=== PATIENT | female | born 1980 | race Caucasian/White ===

== ENCOUNTER 2018-11-20 10:49 | Emergency (ER) | payer MEDICAID ==
[~2018-11-20] VITALS: Ht 162.6 cm; Wt 89.0 kg
[~2018-11-20 10:49] MED LIST: AZIT250T PO; DIPH-423 PO; HYDR25CA PO; METHERGINE; PERM60CR19 TP; PRED20TA PO
[2018-11-20] MEDS ORDERED: CLIN150C2 PO (13:05)
[2018-11-20 13:34] VITALS: BP 126/76
== END 2018-11-20 13:26 | disposition home or self-care (01) ==
LOC: ER 10:50
DX: R59.1 Generalized enlarged lymph nodes (principal); J45.909 Unspecified asthma, uncomplicated; F15.90 Other stimulant use, unspecified, uncomplicated; F11.90 Opioid use, unspecified, uncomplicated; Z98.890 Other specified postprocedural states; Z86.14 Personal history of Methicillin resistant Staphylococcus aureus infection; Z79.899 Other long term (current) drug therapy; Z88.2 Allergy status to sulfonamides; Z88.5 Allergy status to narcotic agent
CPT/HCPCS: 99283

== ENCOUNTER 2018-11-28 23:43 | Emergency (ER) | payer MEDICAID ==
[~2018-11-28] VITALS: Ht 162.6 cm; Wt 90.0 kg
[~2018-11-28 23:43] MED LIST changes: +CLIN150C2 PO
[2018-11-29] MEDS ORDERED: cephalexin 250mg capsule PO ONE (01:30)
[2018-11-29] MEDS ORDERED: bacitracin 15gm ointment TP ONE (01:30)
[2018-11-29] MEDS ORDERED: CEPH250T PO (01:30)
[2018-11-29 01:48] VITALS: BP 119/72
[2018-11-29] MEDS ORDERED: DOXY100C43 PO (19:36)
== END 2018-11-29 01:51 | disposition home or self-care (01) ==
LOC: ER 23:43
DX: L03.011 Cellulitis of right finger (principal); L02.511 Cutaneous abscess of right hand; J45.909 Unspecified asthma, uncomplicated; F32.9 Major depressive disorder, single episode, unspecified; F15.90 Other stimulant use, unspecified, uncomplicated; F11.90 Opioid use, unspecified, uncomplicated; Z86.14 Personal history of Methicillin resistant Staphylococcus aureus infection; Z98.890 Other specified postprocedural states; Z88.2 Allergy status to sulfonamides; Z88.5 Allergy status to narcotic agent; Z79.899 Other long term (current) drug therapy
CPT/HCPCS: 26011; 99284

== ENCOUNTER 2018-11-29 17:06 | Emergency (ER) | payer MEDICAID ==
[~2018-11-29] VITALS: Ht 162.6 cm; Wt 78.0 kg
[~2018-11-29 17:06] MED LIST changes: +CEPH250T PO; -CLIN150C2 PO
[2018-11-29 17:33] VITALS: BP 150/88
[2018-11-29] MEDS ORDERED: LIDOcaine 1% w/epiNEPHrine 1:200,000 30ml vial IM ONE (19:35)
[2018-11-29] MEDS ORDERED: DOXY100C43 PO (19:36)
== END 2018-11-29 20:32 | disposition home or self-care (01) ==
LOC: ER 17:06
DX: L02.11 Cutaneous abscess of neck (principal); K13.0 Diseases of lips; L53.8 Other specified erythematous conditions; J45.909 Unspecified asthma, uncomplicated; F32.9 Major depressive disorder, single episode, unspecified; F15.90 Other stimulant use, unspecified, uncomplicated; F11.90 Opioid use, unspecified, uncomplicated; Z86.14 Personal history of Methicillin resistant Staphylococcus aureus infection; Z98.890 Other specified postprocedural states; Z88.2 Allergy status to sulfonamides; Z88.5 Allergy status to narcotic agent
CPT/HCPCS: 10060; 99283

== ENCOUNTER 2020-05-21 15:36 | Emergency (ER) | payer MEDICAID ==
[~2020-05-21] VITALS: Ht 162.6 cm; Wt 97.7 kg
[~2020-05-21 15:36] MED LIST changes: -CEPH250T PO
[2020-05-21] MEDS ORDERED: ALBU8HFA PO (16:09)
== END 2020-05-21 16:20 | disposition home or self-care (01) ==
LOC: ER 15:36
DX: B34.9 Viral infection, unspecified (principal); R05 Cough; Z20.828 Contact with and (suspected) exposure to other viral communicable diseases; J45.909 Unspecified asthma, uncomplicated; F32.9 Major depressive disorder, single episode, unspecified; F15.90 Other stimulant use, unspecified, uncomplicated; F11.90 Opioid use, unspecified, uncomplicated; Z86.14 Personal history of Methicillin resistant Staphylococcus aureus infection; Z98.890 Other specified postprocedural states; Z88.2 Allergy status to sulfonamides; Z88.5 Allergy status to narcotic agent; Z79.2 Long term (current) use of antibiotics; Z79.899 Other long term (current) drug therapy
CPT/HCPCS: 36415; 99283